=== PATIENT | male | born 1960 | race Caucasian/White ===

== ENCOUNTER 2019-05-02 08:22 | Inpatient (IN) | payer MEDICARE, OTHER ==
[~2019-05-02] VITALS: Ht 188 cm; Wt 103.8 kg
[~2019-05-02 08:22] MED LIST: NAPR-837 PO
[2019-05-02 08:48] LABS: BASO % 1.1 % (0.0-1.0); EOS % 4.7 % (0.0-3.0); HEMATOCRIT 46.4 % (42.0-52.0); LYMPH % 29.1 % (24.0-44.0); MEAN CORPUSCULAR HEMOGLOBIN 30.2 pg (27.0-33.0); MEAN CORPUSCULAR HGB CONC 34.5 g/dl (32.0-36.5); MEAN CORPUSCULAR VOLUME 87.7 fl (80.0-96.0); NEUTROPHILS % 55.9 % (36.0-66.0); PLATELET COUNT, AUTOMATED 148 10^3/uL (150-450); RED BLOOD COUNT 5.29 10^6/uL (4.30-6.10); WHITE BLOOD COUNT 5.3 10^3/uL (4.0-10.0)
[2019-05-02 08:49] LABS: BASO # 0.1 10^3/uL (0.0-0.2); EOS # 0.3 10^3/uL (0.0-0.5); LYMPH # 1.6 10^3/uL (1.5-5.0); MONO # 0.5 10^3/uL (0.0-0.8)
--- NOTE | 2019-05-02 09:14 | REP ---
CT brain without contrast: History: Altered mental status. No comparison study. 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 Bone window settings demonstrate an intact bony calvarium. Visualized paranasal sinuses are clear. There is a fairly large old right temporal and parietal lobe infarct with encephalomalacia. There is no evidence of acute infarction. No hemorrhage is seen. Altamirano white differentiation pattern is otherwise intact. Impression: Old infarct right temporoparietal lobe, MCA territory. No acute intracranial abnormality. Electronically Signed by Ubaldo Sales MD 05/02/2019 09:45 A
[2019-05-02 09:20] LABS: ALBUMIN 3.9 GM/DL (3.2-5.2); ALT/SGPT 25 U/L (12-78); BILIRUBIN,DIRECT 0.2 MG/DL (0.0-0.2); BILIRUBIN,TOTAL 0.7 MG/DL (0.2-1.0); BLOOD UREA NITROGEN 13 MG/DL (7-18); CALCIUM LEVEL 8.9 MG/DL (8.8-10.2); CARBON DIOXIDE LEVEL 30 MEQ/L (21-32); CHLORIDE LEVEL 106 MEQ/L (98-107); CK-MB VALUE MASS < 1.0 NG/ML (<3.6); CPK CREATINE PHOSPHOKINASE 100 U/L (39-308); CREATININE FOR GFR 1.62 MG/DL (0.70-1.30); GLOMERULAR FILTRATION RATE 46.5 (>49); GLUCOSE, FASTING 90 MG/DL (70-100); POTASSIUM SERUM 3.8 MEQ/L (3.5-5.1); SODIUM LEVEL 141 MEQ/L (136-145); TROPONIN I < 0.02 NG/ML (< 0.10)
[2019-05-02] MEDS ORDERED: ISOVUE-370 76% 100ML VIAL (Q9967) As Ordered ONE (09:21)
--- NOTE | 2019-05-02 09:55 | REP ---
PORTABLE CHEST X-RAY: Single view. HISTORY: CVA. FINDINGS: EKG monitoring electrodes overlie the chest. Lungs are well inflated and clear. Heart size is normal. Pleural angles are sharp. The aorta slightly tortuous. There are mild degenerative changes in the thoracic spine. IMPRESSION: No active cardiopulmonary disease. Electronically Signed by Ubaldo Sales MD 05/02/2019 01:48 P
[2019-05-02 09:57] LABS: AMPHETAMINES LEVEL URINE NEGATIVE (NEGATIVE); BARBITURATES URINE NEGATIVE (NEGATIVE); BENZODIAZEPINES URINE NEGATIVE (NEGATIVE); CANNABINOIDS URINE NEGATIVE (NEGATIVE); COCAINE METABOLITE URINE NEGATIVE (NEGATIVE); METHADONE URINE NEGATIVE (NEGATIVE); OPIATES URINE NEGATIVE (NEGATIVE); PHENCYCLIDINE URINE NEGATIVE (NEGATIVE)
--- NOTE | 2019-05-02 10:00 | REP ---
CT angiography of the brain with IV contrast: History: CVA. Comparison head CT study May 02, 2019. CT contrast dose: 100 ml of intravenous Isovue [address] angiographic findings: The distal vertebral arteries are patent, left a little larger than right. Basilar artery is widely patent. The left posterior cerebral artery takes persistent origin which is a normal variant. Right posterior cerebral artery is unremarkable. The distal internal carotid arteries are intact. There is no significant vascular calcification. Anterior middle cerebral arteries are unremarkable bilaterally. There is no evidence of stevenson aneurysm or arterial venous malformation. Sagittal and straight sinuses are patent. Sigmoid sinuses are patent bilaterally. Impression: Persistent origin left posterior cerebral artery. Unremarkable CT angiography of the brain. Electronically Signed by Ubaldo Sales MD 05/02/2019 01:48 P
--- NOTE | 2019-05-02 10:06 | REP ---
CT ANGIOGRAPHY OF THE NECK WITH IV CONTRAST: HISTORY: CVA. CT CONTRAST DOSE: 100 mL of intravenous Isovue [address] ANGIOGRAPHIC FINDINGS: The left vertebral artery takes a direct aortic origin which is a normal variant. Great vessel origins are otherwise unremarkable and intact. Vertebral arteries are patent and symmetric in size in their cervical segments. The common carotid arteries are unremarkable bilaterally. There is some atherosclerotic plaquing bilaterally in the carotid bifurcation. There is no significant ICA stenosis on either side. The cervical segments of the internal carotid arteries are normal and symmetric. IMPRESSION: Minimal carotid artery bifurcation plaquing. No evidence of carotid stenosis. Direct aortic origin of the left vertebral artery as a normal variant. Otherwise negative. Electronically Signed by Ubaldo Sales MD 05/02/2019 01:48 P
[2019-05-02] MEDS ORDERED: hydrALAZINE INJ 20 MG/ML VIAL IV STA (10:15)
[2019-05-02] MEDS ORDERED: CLOPIDOGREL 75 MG TAB PO ONE (11:30)
[2019-05-02] MEDS ORDERED: ASPIRIN 325 MG TAB PO ONE (11:30)
--- NOTE | 2019-05-02 12:58 | HPEPDOC ---
[facility] Medical History & Physical Date of Admission May 02, 2019 Date of Service: May 02, 2019 Attending Physician: ANGELES RINCON MD History and Physical CHIEF COMPLAINT: Right-sided numbness and tingling HISTORY OF PRESENT ILLNESS: 58-year-old male with past medical history of CVA 7 years ago in the right MCA territory, hypertension, hyperlipidemia, now presents with right sided numbness and tingling from his face down to his feet, which she first noticed upon waking up at 6 AM today. He reports taking aspirin, Plavix, blood pressure and cholesterol medications, which were all stopped one year ago because "he lost 70 pounds" in his physician discontinued them at the [place]. He reports feeling well up until this morning when his symptoms began, denies any history of kidney disease. Upon reviewing his chart in the ED, patient has very high blood pressure, elevated creatinine; CT head and CTA negative for acute pathology, MRI pending. Patient denies any headache, nausea, vomiting, shortness of breath, chest pain, abdominal pain, diarrhea at this time; only reports polyuria, which started earlier today. 10 point review of systems is negative except for above PAST MEDICAL HISTORY: 1. Hypertension. 2. CVA. 3. Lipidemia. PAST SURGICAL HISTORY: 1. Hernia repair. 2. Left Knee arthroscopy. 3. Right foot surgery. SOCIAL HISTORY: Never smoker, rare alcohol use FAMILY HISTORY: Father with cardiac disease ALLERGIES: Please see below. HOME MEDICATIONS: Please see below. PHYSICAL EXAMINATION: VITAL SIGNS: Please see below. GENERAL: No distress HEENT: Normocephalic, atraumatic, moist mucous membranes NECK: Supple CARDIOVASCULAR EXAMINATION: S1, S2, no murmurs RESPIRATORY EXAMINATION: Clear to auscultation, no wheezing ABDOMINAL EXAMINATION: Soft, nontender, nondistended, positive bowel sounds EXTREMITIES: Range of motion intact SKIN: No rash NEUROLOGICAL EXAMINATION: Alert and oriented 3, no muscle weakness bilaterally, right sided sensory deficits, including decreased sensation noted throughout the entire body from face to foot. No other sensory deficits appreciated PSYCHIATRIC EXAMINATION: Calm and cooperative LABORATORY DATA: See below. IMAGING: CT and CTA head negative for acute pathology MICROBIOLOGY: Please see below. ASSESSMENT: 4-year-old male with past medical history of CVA, hypertension, hyperlipidemia who stopped taking his medications one year ago presents with symptoms concerning for acute stroke. . PLAN: 1. Right-sided numbness and tingling. Concerning for CVA, CT head negative, MRI pending. Neurology consulted in the ED, he developed pending. Aspirin, Plavix and statin. PT and OT eval We will allow permissive hypertension for now. 2. Hypertensive emergency. Status post hydralazine in the ED We will allow permissive hypertension given concern for acute stroke. We will add medications as needed. 3. Elevated creatinine. Acute renal failure versus chronic kidney disease We will trend and monitor during hospitalization. Joyce E prophylaxis: Heparin subcutaneous. GI prophylaxis: Not needed Vital Signs Vital Signs Date Time Temp Pulse Resp B/P (MAP) Pulse Ox O2 Delivery O2 Flow Rate FiO2 05/02/19 10:30 167/104 05/02/19 10:22 54 05/02/19 10:07 20 98 Room Air 05/02/19 08:23 96.2 Laboratory Data Labs 24H Laboratory Tests 2 05/02/19 08:38: Immature Granulocyte % (Auto) 0.2, White Blood Count 5.3, Red Blood Count 5.29, Hemoglobin 16.0, Hematocrit 46.4, Mean Corpuscular Volume 87.7, Mean Corpuscular Hemoglobin 30.2, Mean Corpuscular Hemoglobin Concent 34.5, Red Cell Distribution Width 12.6, Platelet Count 148L, Neutrophils (%) (Auto) 55.9, Lymphocytes (%) (Auto) 29.1, Monocytes (%) (Auto) 9.0H, Eosinophils (%) (Auto) 4.7H, Basophils (%) (Auto) 1.1H, Neutrophils # (Auto) 3.0, Lymphocytes # (Auto) 1.6, Monocytes # (Auto) 0.5, Eosinophils # (Auto) 0.3, Basophils # (Auto) 0.1, Nucleated Red Blood Cells % (auto) 0.0, Anion Gap 5L, Glomerular Filtration Rate 46.5L, Ca lcium Level 8.9, Aspartate Amino Transf (AST/SGOT) 18, Alanine Aminotransferase (ALT/SGPT) 25, Alkaline Phosphatase 108, Total Bilirubin 0.7, Direct Bilirubin 0.2, Total Creatine Kinase 100, Creatine Kinase MB < 1.0, Creatine Kinase MB Relative Index 1.00, Troponin I < 0.02, Total Protein 7.0, Albumin 3.9, Albumin/Globulin Ratio 1.26, Thyroid Stimulating Hormone (TSH) 2.040 10/14/19 09:12: Urine Opiates Screen NEGATIVE, Urine Methadone Screen NEGATIVE, Urine Barbiturates Screen NEGATIVE, Urine Phencyclidine Screen NEGATIVE, Urine Amphetamines Screen NEGATIVE, Urine Benzodiazepines Screen NEGATIVE, Urine Cocaine Metabolite Screen NEGATIVE, Urine Cannabinoids Screen NEGATIVE CBC/BMP Laboratory Tests 05/02/19 08:38 Red Blood Count 5.29, Mean Corpuscular Volume 87.7, Mean Corpuscular Hemoglobin 30.2, Mean Corpuscular Hemoglobin Concent 34.5, Red Cell Distribution Width 12.6, Neutrophils (%) (Auto) 55.9, Lymphocytes (%) (Auto) 29.1, Monocytes (%) (Auto) 9.0 H, Eosinophils (%) (Auto) 4.7 H, Basophils (%) (Auto) 1.1 H, Neutrophils # (Auto) 3.0, Lymphocytes # (Auto) 1.6, Monocytes # (Auto) 0.5, Eosinophils # (Auto) 0.3, Basophils # (Auto) 0.1 Home Medications No Active Prescriptions or Reported Meds Allergies Coded Allergies: No Known Allergies (Verified Allergy, Unknown, 05/02/19) A-FIB/CHADSVASC A-FIB History Current/History of A-Fib/PAF?: No ANGELES RINCON MD May 02, 2019 12:58
--- NOTE | 2019-05-02 13:23 | REP ---
INDICATION: Facial numbness. Ataxia. Stroke. PROCEDURE: 3D [id number] imaging of the intracranial circulation was performed. DATE AND TIME OF STUDY: 05/02/2019, 12:00 COMPARISON STUDIES: Intracranial CT angiogram completed earlier the same day. FINDINGS: Intracranial vessels are patent without significant stenosis or areas of occlusion. There is no evidence of aneurysm or AVM. 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 The left vertebral artery is dominant. CONCLUSION: No significant intracranial vascular stenosis or occlusion. Electronically Signed by Jono Fulton DO 05/02/2019 01:14 P
[2019-05-02] MEDS: ATORVASTATIN 20 MG TAB PO SCH (13:53)
[2019-05-02 15:00] VITALS: BP 182/90
--- NOTE | 2019-05-02 15:23 | REP ---
INDICATION: Ataxia. Stroke. PROCEDURE: Noncontrast MRI of the brain utilizing multiplanar T1- and T2 sequences. STUDY DATE AND TIME : 05/02/2019 at 11:55 COMPARISON STUDIES: CT brain, consider earlier same day. FINDINGS: There are no areas of restricted diffusion to suggest an acute infarction. There is no intracranial mass effect or hydrocephalous. Encephalomalacia is noted within the right temporoparietal region consistent with the remote right MCA infarction. In addition, there is an area of encephalomalacia and gliosis of the anterior inferior right frontal lobe which may be post traumatic, however, chronic ischemia is not excluded. The large intracranial flow voids are present. The basal cisterns are patent. There is no evidence of significant intracranial hemorrhage. There are scattered foci of T2 prolongation throughout the subcortical and periventricular white matter. Volume loss is present. CONCLUSION: There is no evidence of an acute intracranial process. Remote right MCA infarction. Anterior right frontal region, encephalomalacia as described. Volume loss and sequelae of chronic microangiopathic ischemic disease. Electronically Signed by Jono Fulton DO 05/02/2019 01:13 P
[2019-05-02] MEDS ORDERED: SLF 3 ML SYR IV PRN (15:30)
[2019-05-02 16:00] VITALS: BP 180/92
[2019-05-02] MEDS: HEPARIN SOD (PORCINE) 5000 UNITS/ML VIAL SC SCH ×2 (16:07→22:51)
[2019-05-02] MEDS: amLODIPine 5 MG TAB PO SCH (17:25)
[2019-05-02 20:00] VITALS: BP 160/90
[2019-05-02] MEDS: SLF 3 ML SYR IV SCH (22:51)
[2019-05-02 23:59] VITALS: BP 146/95
[2019-05-03 04:00] VITALS: BP 148/92
[2019-05-03] MEDS: SLF 3 ML SYR IV SCH ×3 (05:08→21:30)
[2019-05-03] MEDS: HEPARIN SOD (PORCINE) 5000 UNITS/ML VIAL SC SCH ×3 (05:08→22:04)
[2019-05-03 05:45] LABS: HEMOGLOBIN 15.4 g/dl (13.5-17.5); MEAN CORPUSCULAR HEMOGLOBIN 30.9 pg (27.0-33.0); MEAN CORPUSCULAR VOLUME 88.4 fl (80.0-96.0); PLATELET COUNT, AUTOMATED 130 10^3/uL (150-450); RED BLOOD COUNT 4.98 10^6/uL (4.30-6.10); WHITE BLOOD COUNT 5.3 10^3/uL (4.0-10.0)
[2019-05-03 06:16] LABS: ALBUMIN 3.5 GM/DL (3.2-5.2); BILIRUBIN,TOTAL 0.7 MG/DL (0.2-1.0); CALCIUM LEVEL 8.7 MG/DL (8.8-10.2); CREATININE FOR GFR 1.57 MG/DL (0.70-1.30); GLOMERULAR FILTRATION RATE 48.2 (>49); MAGNESIUM LEVEL 1.9 MG/DL (1.8-2.4); POTASSIUM SERUM 3.8 MEQ/L (3.5-5.1)
--- NOTE | 2019-05-03 07:24 | CR ---
DATE OF CONSULTATION: 05/02/2019 REFERRING PHYSICIAN: Dr. Marni Tello REASON FOR CONSULTATION: Right-sided numbness and tingling. HISTORY OF PRESENT ILLNESS: Gus Ashford is a 58-year-old man with history of stroke in 2011 for which he was admitted at [facility] in [place]. The patient states that he was living in [place], [place] and presented to hospital with speech deficit, left-sided numbness and weakness, and was transferred to [facility]. He states that he recovered 95% from that stroke. He had slight alteration in his speech from that stroke which remained. The patient states that he woke up this morning and felt numbness, tingling of right face and arm, more than his right leg. He describes his numbness as if someone has drawn a line in the middle of his face and body and right side of his body feels numb and tingly without weakness. His right arm is worse than his right leg. He denies any new speech deficit. He denies any seizures, headaches, neck or back pain. The patient had stopped taking his aspirin, Plavix, cholesterol medicines and blood pressure medicines a year ago as he lost 70 pounds and his physician at the [facility] discontinued his medications. When the patient came to [facility] emergency department his blood pressure was 195/100 and he had a high creatinine of 1.62. He denied dysphagia, dysarthria, diplopia, falls or loss of consciousness. PAST MEDICAL HISTORY: Stroke in 2011 for which he was treated at [facility] in [place]. Hypertension. Dyslipidemia. Hernia repair. Left knee arthroscopic surgery. Right foot surgery. SOCIAL HISTORY: He denies smoking or illicit drugs. He rarely drinks alcohol. FAMILY HISTORY: Father with heart disease. HOME MEDICATIONS: He discontinued all of his medicines a year ago due to weight loss. ALLERGIES: None. REVIEW OF SYSTEMS: All systems were reviewed and found to be noncontributory except as mentioned in the history of present illness. PHYSICAL EXAMINATION: Blood pressure in the emergency department was 195/100 and currently 182/90, temperature 97.1, pulse 58, respiratory rate 22, 100% saturation on room air. Heart regular rate and rhythm. Lungs clear to auscultation. Abdomen soft, nontender, nondistended. No pedal edema. No musculoskeletal abnormalities. No rash. No signs of meningeal irritation. The patient is awake, alert, oriented to place, person and time. Normal speech comprehension and repetition. Extraocular muscles are intact. No facial weakness. Tongue and uvula are midline. Visual celestin are full to confrontation. There is no nystagmus. Recent and distant memory is intact. 5/5 strength in all four extremities. Deep tendon flexes are 3+ on the left side and 2+ on the right side. Plantars are downgoing. The patient states that he is able to feel cold, pinprick vibration sensation on right side of his body, but it feels different than the left side. He states that his numbness is on right side of his body as if somebody has drawn a line in the midline. Gait is normal. DIAGNOSTIC STUDIES: MRI scan of brain showed old stable right middle cerebral artery stroke affecting right frontal and parietal lobes. CT angiography of head and neck and MRA brain were all unremarkable. Telemetry so far showed normal sinus rhythm. He has sinus bradycardia. ASSESSMENT: 1. Old right middle cerebral artery stroke affecting right frontal and parietal lobes causing left-sided symptoms in past. 2. Hypertensive urgency currently. 3. There is concern for transient ischemic attack (TIA). PLAN: 1. Keep systolic blood pressure below 180 and diastolic blood pressure below 90. 2. Start amlodipine 5 mg p.o. daily. The patient used to be on Exforge in the past, but states that it made him depressed. 3. Aspirin 81 mg p.o. daily and Plavix 75 mg p.o. daily. 4. Lipitor 40 mg p.o. daily. 5. Echocardiogram and continue telemetry monitoring. We should check his fasting lipid profile in the morning. 6. Follow with our office in 2-4 weeks after hospital discharge.
--- NOTE | 2019-05-03 07:31 | ECGEPIP ---
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
[2019-05-03 08:00] VITALS: BP 160/82
[2019-05-03] MEDS ORDERED: ASPIRIN 325 MG TAB PO SCH (09:00)
[2019-05-03] MEDS: ASPIRIN 81 MG CHEW TABLET PO SCH (09:22)
[2019-05-03] MEDS: CLOPIDOGREL 75 MG TAB PO SCH (09:22)
[2019-05-03] MEDS: amLODIPine 5 MG TAB PO SCH (09:22)
[2019-05-03] MEDS: ATORVASTATIN 20 MG TAB PO SCH (09:22)
[2019-05-03] MEDS ORDERED: SODIUM CHLORIDE NASAL 0.65% SPRAY BTL (OCEAN) PRN (10:15)
[2019-05-03 12:00] VITALS: BP 152/87
[2019-05-03 16:00] VITALS: BP 142/67
--- NOTE | 2019-05-03 16:12 | IPNPDOC ---
Date Seen The patient was seen on 05/03/19. Progress Note HISTORY OF PRESENT ILLNESS: 58-year-old male with past medical history of CVA 7 years ago in the right MCA territory, hypertension, hyperlipidemia, now presents with right sided numbness and tingling from his face down to his feet, which she first noticed upon waking up at 6 AM today. He reports taking aspirin, Plavix, blood pressure and cholesterol medications, which were all stopped one year ago because "he lost 70 pounds" in [facility]. He reports feeling well up until this morning when his symptoms began, denies any history of kidney disease. Upon reviewing his chart in the ED, patient has very high blood pressure, elevated creatinine; CT head and CTA negative for acute pathology, MRI pending. Patient denies any headache, nausea, vomiting, shortness of breath, chest pain, abdominal pain, diarrhea at this time; only reports polyuria, which started earlier today. 05/03/2019 No acute events overnight, MRI negative for acute stroke, patient reports near complete resolution of symptoms, only reports numbness and tingling over his face at this time. He has no weakness at this time. He denies any other symptoms; he denies shortness of breath, chest pain, nausea, vomiting, diarrhea, constipation, abdominal pain at this time. 10 point review of systems is negative except for above ALLERGIES: Please see below. HOME MEDICATIONS: Please see below. PHYSICAL EXAMINATION: VITAL SIGNS: Please see below. GENERAL: No distress HEENT: Normocephalic, atraumatic, moist mucous membranes NECK: Supple CARDIOVASCULAR EXAMINATION: S1, S2, no murmurs RESPIRATORY EXAMINATION: Clear to auscultation, no wheezing ABDOMINAL EXAMINATION: Soft, nontender, nondistended, positive bowel sounds EXTREMITIES: Range of motion intact SKIN: No rash NEUROLOGICAL EXAMINATION: Alert and oriented 3, no muscle weakness bilaterally, right sided sensory deficits on face only PSYCHIATRIC EXAMINATION: Calm and cooperative LABORATORY DATA: See below. IMAGING: MRI negative for stroke MICROBIOLOGY: Please see below. ASSESSMENT: 58-year-old male with past medical history of CVA, hypertension, hyperlipidemia who stopped taking his medications one year ago, admitted for TIA. PLAN: 1. TIA CT, CTA, MRI negative for acute stroke Neurology evaluation appreciated Aspirin, Plavix and statin. PT and OT following. TTE pending read 2. Hypertension Continue Norvasc, will titrate accordingly 3. Elevated creatinine. Likely chronic kidney disease, will monitor. DVT prophylaxis: Heparin subcutaneous. GI prophylaxis: Not needed VS, I&O, 24H, Fishbone Vital Signs/I&O Vital Signs Date Time Temp Pulse Resp B/P (MAP) Pulse Ox O2 Delivery O2 Flow Rate FiO2 05/03/19 12:00 98.2 65 20 152/87 (108) 98 05/02/19 14:16 Room Air I&O- Last 24 Hours up to 6 AM 05/03/19 06:00 Intake Total 560 ml Output Total 2050 ml Balance -1490 ml Laboratory Data 24H LABS Laboratory Tests 2 05/03/19 05:06: Nucleated Red Blood Cells % (auto) 0.0, Anion Gap 9, Glomerular Filtration Rate 48.2L, Blood Urea Nitrogen 16, Creatinine 1.57H, Sodium Level 142, Potassium Level 3.8, Chloride Level 107, Carbon Dioxide Level 26, Calcium Level 8.7L, Aspartate Amino Transf (AST/SGOT) 15, Alanine Aminotransferase (ALT/SGPT) 23, Alkaline Phosphatase 95, Total Bilirubin 0.7, Triglycerides Level 126, LDL Cholesterol 119H, Total Protein 6.0L, Albumin 3.5, Magnesium Level 1.9, Albumin/Globulin Ratio 1.40, Total Cholesterol 180, Non-HDL Cholesterol (LDL + VLDL) 144, Total HDL Cholesterol 36L, Cholesterol/HDL Ratio 5.000 CBC/BMP Laboratory Tests 05/03/19 05:06 Red Blood Count 4.98, Mean Corpuscular Volume 88.4, Mean Corpuscular Hemoglobin 30.9, Mean Corpuscular Hemoglobin Concent 35.0, Red Cell Distribution Width 12.6, Calcium Level 8.7 L, Aspartate Amino Transf (AST/SGOT) 15, Alanine Amino transferase (ALT/SGPT) 23, Alkaline Phosphatase 95, Total Bilirubin 0.7, Triglycerides Level 126, LDL Cholesterol 119 H, Total Protein 6.0 L, Albumin 3.5 ANGELES RINCON MD May 03, 2019 16:12
[2019-05-03 20:00] VITALS: BP 168/76
--- NOTE | 2019-05-03 23:41 | ECHO ---
DATE OF PROCEDURE: 05/03/2019 REFERRING PHYSICIAN: Dr. Marni Tello INDICATION: Transient cerebral ischemia, unspecified. HEIGHT: 74 inches WEIGHT: 103 kilograms 2D MEASUREMENTS: Left atrium: 3.8 cm Ventricular septum: 1.23 cm Posterior wall: 1.25 cm Left ventricle diastole: 2.9 cm Aortic root: 3.0 cm Aortic annulus: 2.2 cm DOPPLER MEASUREMENTS: Aortic valve velocity: 134 cm/s LVOT velocity: 116 cm/s LVOT VTI: 24.8 cm No aortic regurgitation. Very mild mitral regurgitation. Mitral E velocity: 59.7 cm/s Mitral A velocity: 75.5 cm/s Mitral deceleration time: 271 milliseconds Very mild tricuspid regurgitation. Estimated right ventricle systolic pressure: 20 mmHg assuming a pressure of 5 mmHg. Pulmonary artery systolic pressure: 12 mmHg MITRAL ANNULAR TISSUE DOPPLER: E prime septal: 5.0 cm/s E prime lateral: 10.9 cm/s DESCRIPTION: Rhythm was sinus. This was a moderately technically difficult echocardiogram. No pericardial effusion. This was a 2D, M-mode, color flow Doppler and pulse wave Doppler examination and included mitral annular tissue Doppler. CONCLUSIONS: 1. Mild concentric left ventricle hypertrophy. Hyperdynamic left ventricular (LV) systolic function. Left ventricular ejection fraction (LVEF) 70-75% by visual estimate. Grade 1 LV diastolic dysfunction. 2. Mild aortic valve sclerosis of 3-cusp aortic valve. No aortic regurgitation. 3. Otherwise normal appearing echocardiogram Doppler findings. 4. Moderately technically difficult echocardiogram.
[2019-05-03 23:59] VITALS: BP 140/70
[2019-05-04 04:00] VITALS: BP 158/82
[2019-05-04 05:51] LABS: HEMATOCRIT 42.3 % (42.0-52.0); HEMOGLOBIN 14.8 g/dl (13.5-17.5); MEAN CORPUSCULAR VOLUME 88.7 fl (80.0-96.0); PLATELET COUNT, AUTOMATED 129 10^3/uL (150-450); RED BLOOD COUNT 4.77 10^6/uL (4.30-6.10); WHITE BLOOD COUNT 5.5 10^3/uL (4.0-10.0)
[2019-05-04 06:10] LABS: ALBUMIN 3.3 GM/DL (3.2-5.2); BILIRUBIN,TOTAL 0.7 MG/DL (0.2-1.0); CALCIUM LEVEL 8.5 MG/DL (8.8-10.2); CREATININE FOR GFR 1.73 MG/DL (0.70-1.30); GLOMERULAR FILTRATION RATE 43.1 (>49); POTASSIUM SERUM 3.9 MEQ/L (3.5-5.1); TOTAL PROTEIN 6.4 GM/DL (6.4-8.2)
[2019-05-04] MEDS: HEPARIN SOD (PORCINE) 5000 UNITS/ML VIAL SC SCH (06:14)
[2019-05-04] MEDS: SLF 3 ML SYR IV SCH (06:15)
[2019-05-04 08:00] VITALS: BP 140/62
[2019-05-04] MEDS: CLOPIDOGREL 75 MG TAB PO SCH (08:58)
[2019-05-04] MEDS: ATORVASTATIN 20 MG TAB PO SCH (08:58)
[2019-05-04] MEDS: ASPIRIN 81 MG CHEW TABLET PO SCH (08:58)
[2019-05-04 08:59] VITALS: BP 140/62
[2019-05-04] MEDS ORDERED: amLODIPine 10 MG TAB PO SCH (09:00)
[2019-05-04] MEDS ORDERED: ATOR1TAB21 PO (12:53)
[2019-05-04] MEDS ORDERED: ASPI81CH8 PO (12:53)
[2019-05-04] MEDS ORDERED: AMLO10TA5 PO (12:53)
[2019-05-04] MEDS ORDERED: CLOP75TA2 PO (12:53)
--- NOTE | 2019-05-04 14:34 | DS.PDOC ---
Discharge Summary General Date of Admission May 02, 2019 at 12:27 Date of Discharge 05/04/2019 Attending Physician: ANGELES RINCON MD Discharge Summary PROCEDURES PERFORMED DURING STAY: None. ADMITTING DIAGNOSES: 1. TIA. DISCHARGE DIAGNOSES: 1. TIA. COMPLICATIONS/CHIEF COMPLAINT: Cva,Elevated Serum Creantinine,Hypertension,. HISTORY OF PRESENT ILLNESS: 4-year-old male with past medical history of CVA, hypertension and CAD was admitted for TIA. Patient's presenting symptoms were numbness and tingling on the right side of his body including his face, right arm and right leg. His workup including CAT scan, MRI and echocardiogram have been negative. His symptoms have resolved completely since admission. He was reportedly taken off of his blood pressure medications along with aspirin, Plavix one year ago [facility]. Patient is restarted on aspirin, Plavix, atorvastatin and Norvasc for blood pressure control. Patient is noted to have elevated creatinine, likely chronic kidney disease due to long-standing hypertension. TTE shows mild concentric hypertrophy and diastolic dysfunction, consistent with long-standing hypertension. Patient is currently completely asymptomatic and wishing to go home. He was evaluated by neurology who recommended medical management as above and follow up in the clinic in 2-3 weeks. HOSPITAL COURSE: As above. DISCHARGE MEDICATIONS: Please see below. ALLERGIES: Please see below. PHYSICAL EXAMINATION: VITAL SIGNS: Please see below. GENERAL: No distress HEENT: Normocephalic, atraumatic, moist mucous membranes NECK: Supple CARDIOVASCULAR EXAMINATION: S1, S2, no murmurs RESPIRATORY EXAMINATION: Clear to auscultation, no wheezing ABDOMINAL EXAMINATION: Soft, nontender, nondistended, positive bowel sounds EXTREMITIES: Range of motion intact SKIN: No rash NEUROLOGICAL EXAMINATION: Alert and oriented 3, no focal deficits PSYCHIATRIC EXAMINATION: Calm and cooperative LABORATORY DATA: Please see below. IMAGING: CT and MRI negative for acute stroke PROGNOSIS: Fair ACTIVITY: As tolerated. DIET: Cardiac DISCHARGE PLAN: Patient is to follow-up with neurology, nephrology, PCP in 1-2 weeks DISPOSITION: 01 Home, Self-Care. DISCHARGE INSTRUCTIONS: 1. As above. DISCHARGE CONDITION: Stable. TIME SPENT ON DISCHARGE: Greater than 34 minutes. Vital Signs/I&Os Vital Signs Date Time Temp Pulse Resp B/P (MAP) Pulse Ox O2 Delivery O2 Flow Rate FiO2 05/04/19 08:59 71 140/62 05/04/19 08:00 97.7 18 95 05/02/19 14:16 Room Air I&O- Last 24 Hours up to 6 AM 05/04/19 06:00 Intake Total 1760 ml Output Total 2150 ml Balance -390 ml Laboratory Data Labs 24H Laboratory Tests 2 05/03/19 16:21: Magnesium Level 2.2 05/04/19 05:27: Nucleated Red Blood Cells % (auto) 0.0, Anion Gap 4L, Glomerular Filtration Rate 43.1L, Calcium Level 8.5L, Total Bilirubin 0.7, Aspartate Amino Transf (AST/SGOT) 16, Alanine Aminotransferase (ALT/SGPT) 19, Alkaline Phosphatase 94, Total Protein 6.4, Albumin 3.3, Albumin/Globulin Ratio 1.06 CBC/BMP Laboratory Tests 05/04/19 05:27 Discharge Medications Scheduled Amlodipine Besylate (Amlodipine Besylate) 10 Mg Tablet, 10 MG PO DAILY Aspirin (Children's Aspirin) 81 Mg Tab.chew, 81 MG PO DAILY Atorvastatin Calcium (Atorvastatin Calcium) 20 Mg Tablet, 40 MG PO DAILY Clopidogrel Bisulfate (Clopidogrel) 75 Mg Tablet, 75 MG PO DAILY Allergies Coded Allergies: No Known Allergies (Verified Allergy, Unknown, 05/02/19) ANGELES RINCON MD May 04, 2019 14:34
== END 2019-05-04 14:17 | disposition home or self-care (01) | DRG 69 ==
LOC: M ED 08:22 → M ED INP 12:27 → M PCU 14:55
PROVIDERS: ADMIT Internal Medicine; ATTEND Internal Medicine
DX: G45.9 Transient cerebral ischemic attack, unspecified (principal); I63.9 Cerebral infarction, unspecified; I16.1 Hypertensive emergency; I12.9 Hypertensive chronic kidney disease with stage 1 through stage 4 chronic kidney disease, or unspecified chronic kidney disease; E78.5 Hyperlipidemia, unspecified; N18.9 Chronic kidney disease, unspecified; Z86.73 Personal history of transient ischemic attack (TIA), and cerebral infarction without residual deficits; Z96.652 Presence of left artificial knee joint

== ENCOUNTER → 2019-05-30 | Outpatient (CLI) | payer MEDICARE, OTHER ==
[~2019-05-30] MED LIST changes: +AMLO10TA5 PO; +ASPI81CH8 PO; +ATOR1TAB21 PO; +CHLO125TA PO; +CLOP75TA2 PO; +CO Q200C10 PO; +K-TA10TA PO
--- NOTE | 2019-05-30 17:01 | REP ---
Bilateral duplex carotid sonography: History: Transient ischemic attack. Findings: Antegrade flow was observed in both vertebral arteries. Right carotid: The right common carotid artery is unremarkable on two-dimensional scanning. There is mild mixed plaquing in the bulb and proximal ECA on the right side on two-dimensional scanning. Color flow and spectral Doppler interrogation are unremarkable on the right. Velocity chart right carotid: Right CCA PSV 89 cm/S, right ICA PSV 44, ZEESHAN 15, right ECA PSV 67 right ICA/CCA ratio normal 0.5. Impression: Less than 50% category narrowing in the left ICA by Doppler velocity criteria. Left carotid: Left common carotid artery shows mild intimal thickening. There is mild mixed plaquing in the bulb and proximal ICA on the left side. Color flow and spectral Doppler interrogation are unremarkable on the left. Velocity chart left carotid: Left CCA PSV 145 cm/S, left ICA PSV 61 EDV 27, left ECA PSV 76 left ICA/CCA ratio normal 0.4. Impression: Less than 50% category narrowing in the left ICA by Doppler velocity criteria. Electronically Signed by Ubaldo Sales MD 05/30/2019 05:14 P
== END ==
LOC: M RAD 11:54
PROVIDERS: ATTEND Internal Medicine Cardiovascular Disease
DX: G45.9 Transient cerebral ischemic attack, unspecified (principal)

== ENCOUNTER 2019-05-31 11:28 | Day surgery (SDC) | payer MEDICARE, OTHER ==
[~2019-05-31] VITALS: Ht 188 cm; Wt 100.7 kg
[~2019-05-31 11:28] MED LIST changes: +LR 1,000 ML IV ONE; +ceFAZolin SOD 2 GM in IV 1 EA IV ONE
[2019-05-31] MEDS ORDERED: LIDOCAINE 1% SDV INJ 30 ML VIAL As Ordered ONE (12:00)
[2019-05-31] MEDS ORDERED: PROPOFOL 200 MG/20 ML VIAL As Ordered ONE (12:10)
[2019-05-31] MEDS ORDERED: MIDAZOLAM INJ 2 MG/2 ML VIAL (J2250) As Ordered ONE (12:10)
[2019-05-31] MEDS ORDERED: fentaNYL 100 MCG/2 ML INJECTION (J3010) As Ordered ONE (12:10)
[2019-05-31] MEDS ORDERED: LIDOCAINE 2% INJ 100 MG/5 ML SDV (FOR ANES.) As Ordered ONE (12:10)
[2019-05-31 14:13] VITALS: BP 128/89
--- NOTE | 2019-05-31 14:32 | RO ---
DATE OF PROCEDURE: 05/31/2019 PREPROCEDURE DIAGNOSIS: Cryptogenic stroke. POSTPROCEDURE DIAGNOSIS: Cryptogenic stroke. FINDINGS: Cryptogenic stroke. Successful implantation of implantable loop recorder. PROCEDURE PERFORMED: Implantation of Medtronic implantable loop recorder. SURGEON: Feng Jose MD AIRLINE SECURITY REPRESENTATIVE: None. ANESTHESIA: Lidocaine 1% local, monitored anesthetic care. SPECIMENS: None. ESTIMATED BLOOD LOSS: 1 mL. BLOOD PRODUCTS REPLACED: None. DRAINS: None. COMPLICATIONS: None. PROCEDURE DESCRIPTION: The patient was then prepped and draped over the sternum and left anterior chest. Incision was made with a #15 blade approximately at the left fourth interspace 1 inch lateral to the left parasternal border through the skin. The guide on the insertion tool was then placed into the incision and advanced in a left lateral-caudal direction parallel to the anterior chest wall. The insertion tool was then rotated 180 degrees along its long axis. The punch was then placed into the insertion tool and used to advance the loop recorder into the subcutaneous tissue. The punch was removed and then the insertion tool was removed, leaving the loop recorder behind. The initial R wave sensing was 0.5 mV. The incision was then temporarily approximated using a 4-0 Biosyn suture, which was placed subcuticular with the free ends protruding 0.5 cm from either end of the incision line. This was then placed under tension to allow the skin edges to approximate quite tightly. Next, three layers of Dermabond were applied. The Biosyn suture was then removed entirely from the incision line. The patient tolerated the procedure well without any immediate complications. The Medtronic loop recorder implanted was a [employer] Reveal LINQ model LNQ11 with serial number [id number].
== END 2019-05-31 14:18 | disposition home or self-care (01) ==
LOC: M SDC 11:28
PROVIDERS: ATTEND Internal Medicine Cardiovascular Disease
DX: I63.9 Cerebral infarction, unspecified (principal); I13.10 Hypertensive heart and chronic kidney disease without heart failure, with stage 1 through stage 4 chronic kidney disease, or unspecified chronic kidney disease; G45.9 Transient cerebral ischemic attack, unspecified; E66.3 Overweight; N18.3 Chronic kidney disease, stage 3 (moderate); I69.321 Dysphasia following cerebral infarction; I69.354 Hemiplegia and hemiparesis following cerebral infarction affecting left non-dominant side; Z79.899 Other long term (current) drug therapy; Z79.82 Long term (current) use of aspirin; Z79.02 Long term (current) use of antithrombotics/antiplatelets; Z82.49 Family history of ischemic heart disease and other diseases of the circulatory system
CPT/HCPCS: 33285; C1764; J0690; J2250; J3010

== ENCOUNTER 2019-06-03 12:02 | Day surgery (SDC) | payer MEDICARE, OTHER ==
[~2019-06-03] VITALS: Ht 188 cm; Wt 102.1 kg
[~2019-06-03 12:02] MED LIST changes: -LR 1,000 ML IV ONE; -ceFAZolin SOD 2 GM in IV 1 EA IV ONE
[2019-06-03] MEDS ORDERED: NS 1,000 ML IV ONE (13:45)
[2019-06-03] MEDS ORDERED: LIDOCAINE VISCOUS 2% SOLN 15ML UDC As Ordered ONE (14:09)
[2019-06-03] MEDS ORDERED: MIDAZOLAM INJ 2 MG/2 ML VIAL (J2250) As Ordered ONE ×4 (14:10→14:13)
[2019-06-03 15:15] VITALS: BP 122/92
--- NOTE | 2019-06-03 15:58 | T-ECHO ---
DATE OF PROCEDURE: 06/03/2019 REFERRING PHYSICIAN: Feng Jose MD INDICATION: 1. Cryptogenic stroke. 2. Transient cerebral ischemia, unspecified. PREPROCEDURE DIAGNOSIS: 1. Cryptogenic stroke. 2. Transient cerebral ischemia, unspecified. POSTPROCEDURE DIAGNOSIS: Patent foramen ovale with positive bubble shunting from right atrium to left atrium via the patent foramen ovale (PFO). PROCEDURE: Transesophageal echocardiogram with bubble study. SURGEON: Feng Jose MD PLUG AND MOLD FINISHER: None. IV SEDATION: Midazolam 5 mg IV. COMPLICATIONS: None. PROCEDURE DESCRIPTION: Rhythm was sinus. Patient received viscous lidocaine to gargle at the start of the procedure. Esophageal intubation was accomplished without difficulty by Dr. Jose using a Davon's 3D transesophageal echocardiogram probe. The left and right ventricles appeared normal in size and systolic function and without regional wall motion abnormalities. Left ventricle ejection fraction was 60% by visual estimate. Atria did not appear to be enlarged. 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 The presence of a small patent foramen ovale was demonstrated with shunting of bubbles from right atrium to left atrium via the PFO using three bubble injections. The bubble injections consisted of 8.5 mL of normal saline with 1 mL of the patient's own blood withdrawn from the IV site combined with 0.5 mL of air which was then agitated then agitated back and forth between two 10 mL syringes via a three-way stopcock. Valsalva maneuver was released upon entry of bubbles into the right atrium. The degree of bubble shunting appeared to be small. Pulmonary venous connections to the left atrium were anatomically normal. Pulmonary vein flow in the left upper pulmonary vein by pulse wave Doppler appeared normal. Aortic valve was three-cuspid and was structurally functional. Mitral leaflets were structurally and functionally normal with very mild mitral regurgitation within normal limits. Pulmonic and tricuspid valves were normal. No pericardial effusion. Distal aortic arch and descending thoracic aorta were normal. CONCLUSIONS: 1. The presence of patent foramen ovale with a small amount of shunting from right atrium to left atrium demonstrated by bubble injections. 2. 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 3. Normal left ventricle systolic function. Left ventricular ejection fraction 60% by visual estimate. Following the procedure I showed some images to the patient and his who were present at the bedside. The patent foramen ovale with the crossing of bubbles from left atrium to left atrium via the PFO. I discussed with both of them in addition to explaining PFO about PFO device closure and they were agreeable. My plan is to refer the patient to a invasive critical care specialist familiar with device closure of PFOs.
== END 2019-06-03 15:34 | disposition home or self-care (01) ==
LOC: M OPP 12:02
PROVIDERS: ATTEND Internal Medicine Cardiovascular Disease
DX: I63.9 Cerebral infarction, unspecified (principal); I11.9 Hypertensive heart disease without heart failure; G45.9 Transient cerebral ischemic attack, unspecified; E66.3 Overweight; N18.3 Chronic kidney disease, stage 3 (moderate)
CPT/HCPCS: 93312; 93320; 93325; J2250

== ENCOUNTER → 2019-06-09 | Outpatient (REF) | payer MEDICARE, OTHER | LOC: M LAB REF 12:52 | PROVIDERS: ATTEND Internal Medicine Nephrology | DX: E78.6 Lipoprotein deficiency (principal) ==

== ENCOUNTER → 2019-06-14 | Outpatient (REF) | payer MEDICARE, OTHER ==
[2019-06-14 12:57] LABS: BASO % 0.6 % (0.0-1.0); EOS # 0.2 10^3/uL (0.0-0.5); EOS % 3.2 % (0.0-3.0); HEMATOCRIT 47.5 % (42.0-52.0); LYMPH # 1.6 10^3/uL (1.5-5.0); LYMPH % 23.3 % (24.0-44.0); MEAN CORPUSCULAR HEMOGLOBIN 30.3 pg (27.0-33.0); MEAN CORPUSCULAR HGB CONC 33.7 g/dl (32.0-36.5); MONO # 0.5 10^3/uL (0.0-0.8); MONO % 7.2 % (0.0-5.0); NEUTROPHILS # 4.5 10^3/uL (1.5-8.5); NEUTROPHILS % 65.4 % (36.0-66.0); PLATELET COUNT, AUTOMATED 177 10^3/uL (150-450); RED BLOOD COUNT 5.28 10^6/uL (4.30-6.10); WHITE BLOOD COUNT 6.9 10^3/uL (4.0-10.0)
[2019-06-14 13:10] LABS: ALBUMIN 3.7 GM/DL (3.2-5.2); BILIRUBIN,TOTAL 0.8 MG/DL (0.2-1.0); CALCIUM LEVEL 8.8 MG/DL (8.8-10.2); CHOLESTEROL RISK RATIO 5.2 (<5); CREATININE FOR GFR 1.75 MG/DL (0.70-1.30); FREE T4 1.09 NG/DL (0.76-1.46); GLOMERULAR FILTRATION RATE 42.5 (>49); POTASSIUM SERUM 4.1 MEQ/L (3.5-5.1); THYROID STIMULATING HORMONE 2.02 uIU/ML (0.358-3.740); TOTAL PROTEIN 6.9 GM/DL (6.4-8.2)
[2019-06-14 13:26] LABS: TOTAL 25(OH) VITAMIN D 24.3 NG/ML (30.0-100.0)
[2019-06-14 13:59] LABS: HEMOGLOBIN A1c 5.1 %
[2019-06-16 00:06] LABS: Lyme Disease IgG/IgM Antibodie <0.91 ISR (0.00-0.90); Lyme Disease IgM Ab Quantitati <0.80 index (0.00-0.79)
== END ==
LOC: M LAB REF 12:04
PROVIDERS: ATTEND Family Medicine
DX: M25.50 Pain in unspecified joint (principal); Z13.228 Encounter for screening for other metabolic disorders; Z12.5 Encounter for screening for malignant neoplasm of prostate; Z79.899 Other long term (current) drug therapy
CPT/HCPCS: 80053; 80061; 81001; 82306; 83036; 84439; 84443; 85025; 86617; G0103

== ENCOUNTER → 2019-06-14 | Outpatient (REF) | payer MEDICARE, OTHER ==
[2019-06-14 13:06] LABS: APPEARANCE, URINE CLEAR (CLEAR); BACTERIA, URINE AUTO NEGATIVE (NEGATIVE); BILIRUBIN, URINE AUTO NEGATIVE (NEGATIVE); BLOOD, URINE BLOOD NEGATIVE (NEGATIVE); CALCIUM OXALATE CRYSTALS SMALL; COLOR, URINE YELLOW (YELLOW); GLUCOSE, URINE (UA) AUTO NEGATIVE (NEGATIVE); KETONE, URINE AUTO NEGATIVE (NEGATIVE); LEUKOCYTE ESTERASE, URINE AUTO NEGATIVE (NEGATIVE); MUCUS, URINE SMALL (NEGATIVE); NITRITE, URINE AUTO NEGATIVE (NEGATIVE); PROTEIN, URINE AUTO NEGATIVE (NEGATIVE); RBC, URINE AUTO 1 /HPF (0-3); SPECIFIC GRAVITY URINE AUTO 1.019 (1.002-1.035); SQUAMOUS EPITHELIAL CELL UR AU 0 /HPF (0-6); WBC, URINE AUTO 0 /HPF (0-3)
== END ==
LOC: M LAB REF 11:51
PROVIDERS: ATTEND Family Medicine
DX: M25.50 Pain in unspecified joint (principal); Z12.5 Encounter for screening for malignant neoplasm of prostate; Z13.228 Encounter for screening for other metabolic disorders

== ENCOUNTER → 2019-06-24 | Outpatient (CLI) | payer MEDICARE, OTHER ==
--- NOTE | 2019-06-24 09:01 | REP ---
Clinical: Hypertension and chronic medical renal disease. Technique: Altamirano scale and color Doppler evaluation of the kidneys and renal vasculature using curved array transducer. Findings: The kidneys demonstrate lobulated contour with increased central sinus fat and bilateral cysts consistent with chronic medical renal disease. No hydronephrosis, nephrolithiasis or obvious mass lesion. Right kidney measures 10.9 x 5.5 x 4.8 cm with the largest cysts measuring 2.3 cm in the medial upper pole and 1.6 cm in the cortical mid/lower pole. Left kidney measures 11.4 x 5.8 x 5.0 cm with the largest cyst at the superior pole measuring 3.0 cm. Color Doppler evaluation of the renal vasculature is severely limited due to overlying bowel gas and the main renal arteries are incompletely evaluated. Intrarenal resistive indices and acceleration times appear normal. Aortic velocity is decreased which may reflect underlying cardiac disease. Right Kidney: Peak arterial velocity: Not obtainable . Renal aortic ratio: Not obtainable . Resistive indices: 0.56 - 0.57 . Acceleration times: 0.025 - 0.028 . Left kidney: Peak arterial velocity: Not obtainable . Renal aortic ratio: Not obtainable . Resistive indices: 0.59 - 0.64 . Acceleration times: 0.022 - 0.055 . Impression: 1. Kidneys demonstrate increased central sinus fat and cysts related to chronic renal disease. No hydronephrosis. 2. Limited Doppler evaluation without indirect evidence for significant renal arterial stenosis. Electronically Signed by Kt Rodriguez MD 06/24/2019 08:53 A
--- NOTE | 2019-06-24 09:03 | REP ---
Clinical: Chronic renal disease. Technique: Real time camacho scale and color evaluation using curved array transducer. Findings: The bladder was poorly distended with decreased total volume. No obvious mass lesion noted. Bilateral ureteral jets are identified. Prevoid bladder measures 3.8 x 4.3 x 3.4 cm (36 ml). Impression: Normal bilateral ureteral jets. No obvious renal mass lesion. Electronically Signed by Kt Rodriguez MD 06/24/2019 08:54 A
== END ==
LOC: M RAD 06:24
PROVIDERS: ATTEND Internal Medicine Nephrology
DX: N18.3 Chronic kidney disease, stage 3 (moderate) (principal); I13.0 Hypertensive heart and chronic kidney disease with heart failure and stage 1 through stage 4 chronic kidney disease, or unspecified chronic kidney disease; N28.1 Cyst of kidney, acquired

== ENCOUNTER → 2019-10-03 | Outpatient (REF) | payer MEDICARE, OTHER ==
[2019-10-03 13:06] LABS: BASO % 0.9 % (0.0-1.0); EOS # 0.2 10^3/uL (0.0-0.5); EOS % 4.3 % (0.0-3.0); HEMATOCRIT 43.6 % (42.0-52.0); LYMPH # 1.5 10^3/uL (1.5-5.0); MEAN CORPUSCULAR HEMOGLOBIN 30.7 pg (27.0-33.0); MEAN CORPUSCULAR HGB CONC 34.4 g/dl (32.0-36.5); MEAN CORPUSCULAR VOLUME 89.2 fl (80.0-96.0); MONO # 0.5 10^3/uL (0.0-0.8); MONO % 9.8 % (0.0-5.0); NEUTROPHILS # 2.4 10^3/uL (1.5-8.5); NEUTROPHILS % 52.6 % (36.0-66.0); PLATELET COUNT, AUTOMATED 141 10^3/uL (150-450); RED BLOOD COUNT 4.89 10^6/uL (4.30-6.10); WHITE BLOOD COUNT 4.6 10^3/uL (4.0-10.0)
[2019-10-03 13:16] LABS: ALBUMIN 3.7 GM/DL (3.2-5.2); BILIRUBIN,TOTAL 0.5 MG/DL (0.2-1.0); CALCIUM LEVEL 8.8 MG/DL (8.8-10.2); CHOLESTEROL RISK RATIO 5.341 (<5); CREATININE FOR GFR 1.51 MG/DL (0.70-1.30); GLOMERULAR FILTRATION RATE 50.4 (>49); POTASSIUM SERUM 4.5 MEQ/L (3.5-5.1); THYROID STIMULATING HORMONE 1.03 uIU/ML (0.358-3.740); TOTAL PROTEIN 6.6 GM/DL (6.4-8.2)
[2019-10-03 13:17] LABS: TOTAL 25(OH) VITAMIN D 19.9 NG/ML (30.0-100.0)
[2019-10-03 14:39] LABS: HEMOGLOBIN A1c 5.2 %
== END ==
LOC: M LAB REF 12:44
PROVIDERS: ATTEND Family Medicine
DX: Z13.228 Encounter for screening for other metabolic disorders (principal); E78.00 Pure hypercholesterolemia, unspecified; E07.9 Disorder of thyroid, unspecified

== ENCOUNTER → 2019-10-25 | Outpatient (CLI) | payer MEDICARE, OTHER ==
[2019-10-25 20:04] LABS: BASO # 0.1 10^3/uL (0.0-0.2); BASO % 0.8 % (0.0-1.0); EOS # 0.3 10^3/uL (0.0-0.5); EOS % 4.4 % (0.0-3.0); HEMATOCRIT 46.1 % (42.0-52.0); HEMOGLOBIN 15.9 g/dl (13.5-17.5); LYMPH % 34.2 % (24.0-44.0); MEAN CORPUSCULAR HGB CONC 34.5 g/dl (32.0-36.5); MEAN CORPUSCULAR VOLUME 89.9 fl (80.0-96.0); MONO # 0.6 10^3/uL (0.0-0.8); MONO % 9.3 % (0.0-5.0); PLATELET COUNT, AUTOMATED 158 10^3/uL (150-450); RED BLOOD COUNT 5.13 10^6/uL (4.30-6.10); WHITE BLOOD COUNT 5.9 10^3/uL (4.0-10.0)
[2019-10-25 20:06] LABS: CALCIUM LEVEL 8.7 MG/DL (8.8-10.2); CREATININE FOR GFR 1.51 MG/DL (0.70-1.30); GLOMERULAR FILTRATION RATE 50.4 (>49); POTASSIUM SERUM 4.2 MEQ/L (3.5-5.1)
== END ==
LOC: M LRY 14:55
PROVIDERS: ATTEND Internal Medicine Cardiovascular Disease
DX: I63.10 Cerebral infarction due to embolism of unspecified precerebral artery (principal); Q21.1 Atrial septal defect

== ENCOUNTER 2019-11-05 04:29 | Emergency (ER) | payer MEDICARE, OTHER ==
[~2019-11-05] VITALS: Ht 188 cm; Wt 104.5 kg
[2019-11-05] MEDS ORDERED: AMIL5TAB4 (04:39)
[2019-11-05] MEDS ORDERED: CLOP75TA2 (04:39)
[2019-11-05] MEDS ORDERED: LIDOCAINE W/EPINEPHRINE 1% 20ML VIAL As Ordered ONE (05:00)
[2019-11-05] MEDS ORDERED: LIDOCAINE W/EPINEPHRINE 1% 20ML VIAL SC ONE (05:00)
[2019-11-05 05:34] VITALS: BP 141/95
== END 2019-11-05 05:35 | disposition home or self-care (01) ==
LOC: M ED 04:29
DX: I97.610 Postprocedural hemorrhage of a circulatory system organ or structure following a cardiac catheterization (principal); I11.9 Hypertensive heart disease without heart failure; I25.10 Atherosclerotic heart disease of native coronary artery without angina pectoris; Z98.61 Coronary angioplasty status; Z79.899 Other long term (current) drug therapy; Z79.82 Long term (current) use of aspirin; Z79.02 Long term (current) use of antithrombotics/antiplatelets

== ENCOUNTER → 2021-05-17 | Outpatient (REF) | payer MEDICARE, OTHER ==
[~2021-05-17] MED LIST changes: +AMIL5TAB4; -AMLO10TA5 PO; +AMLO1TAB25 PO; +CLOP75TA2
== END ==
LOC: M LAB REF 13:32
PROVIDERS: ATTEND Internal Medicine Nephrology
DX: E87.6 Hypokalemia (principal)

== ENCOUNTER → 2021-09-13 | Outpatient (REF) | payer MEDICARE, OTHER ==
[2021-09-13 14:40] LABS: ALBUMIN 3.6 GM/DL (3.2-5.2); BILIRUBIN,TOTAL 0.4 MG/DL (0.2-1.0); CALCIUM LEVEL 8.7 MG/DL (8.8-10.2); CREATININE FOR GFR 1.74 MG/DL (0.70-1.30); FREE T4 1.12 NG/DL (0.76-1.46); GLOMERULAR FILTRATION RATE 42.5 (>49); MAGNESIUM LEVEL 2.4 MG/DL (1.8-2.4); POTASSIUM SERUM 4.5 MEQ/L (3.5-5.1); THYROID STIMULATING HORMONE 2.64 uIU/ML (0.358-3.740); TOTAL PROTEIN 6.8 GM/DL (6.4-8.2)
== END ==
LOC: M LAB REF 12:44
PROVIDERS: ATTEND Physician Assistant
DX: I48.0 Paroxysmal atrial fibrillation (principal)

== ENCOUNTER → 2021-10-16 | Outpatient (CLI) | payer MEDICARE, OTHER ==
[~2021-10-16] MED LIST changes: -AMIL5TAB4; +AMIL5TAB4 PO
== END ==
LOC: M LABSMTC 09:20
PROVIDERS: ATTEND Anesthesiology
DX: Z01.818 Encounter for other preprocedural examination (principal); Z11.52 Encounter for screening for COVID-19

== ENCOUNTER 2021-10-17 14:50 | Day surgery (SDC) | payer MEDICARE, OTHER ==
[~2021-10-17] VITALS: Ht 188 cm; Wt 107.0 kg
[~2021-10-17 14:50] MED LIST changes: +LIDOCAINE 1% MDV 20ML VIAL SQ PRN; +LR 1,000 ML IV ONE; +ceFAZolin SOD 2 GM in IV 1 EA IV ONE
[2021-10-17] MEDS ORDERED: dexameTHASONE 4 MG/ML 1ML VIAL (J1100 PER 1MG) As Ordered ONE (16:33)
[2021-10-17] MEDS ORDERED: KETOROLAC 60MG 2ML VIAL As Ordered ONE (16:33)
[2021-10-17] MEDS ORDERED: fentaNYL 100 MCG/2 ML INJECTION As Ordered ONE (16:33)
[2021-10-17] MEDS ORDERED: LIDOCAINE 2% 100MG/5ML SDV (FOR ANES.) As Ordered ONE (16:33)
[2021-10-17] MEDS ORDERED: propofoL 200 MG/20 ML VIAL As Ordered ONE (16:33)
[2021-10-17] MEDS ORDERED: ONDANSETRON 4MG/2ML VIAL As Ordered ONE (16:33)
[2021-10-17] MEDS ORDERED: MIDAZOLAM INJ 2MG/2ML VIAL (J2250 PER 1MG) As Ordered ONE (16:34)
[2021-10-17] MEDS ORDERED: LIDOCAINE 1% MDV 20ML VIAL As Ordered ONE (16:55)
[2021-10-17 18:18] VITALS: BP 135/84
== END 2021-10-17 18:35 | disposition home or self-care (01) ==
LOC: M SDC 14:50
PROVIDERS: ATTEND Internal Medicine Cardiovascular Disease
DX: Z45.09 Encounter for adjustment and management of other cardiac device (principal); Z86.73 Personal history of transient ischemic attack (TIA), and cerebral infarction without residual deficits; I10 Essential (primary) hypertension; Z79.82 Long term (current) use of aspirin; Z79.899 Other long term (current) drug therapy; N18.30 Chronic kidney disease, stage 3 unspecified; Z88.8 Allergy status to other drugs, medicaments and biological substances; F41.9 Anxiety disorder, unspecified
CPT/HCPCS: 33286; J0690; J1100; J1885; J2250; J2405; J3010

== ENCOUNTER → 2022-03-31 | Outpatient (CLI) | payer MEDICARE, OTHER ==
[~2022-03-31] MED LIST changes: +CALC500T52 PO; +CO Q10CA PO; -LIDOCAINE 1% MDV 20ML VIAL SQ PRN; -LR 1,000 ML IV ONE; +REDPOW XX; +VITA100093 PO; -ceFAZolin SOD 2 GM in IV 1 EA IV ONE
== END ==
LOC: M LABSMTC 10:28
PROVIDERS: ATTEND Anesthesiology
DX: Z01.818 Encounter for other preprocedural examination (principal); Z11.52 Encounter for screening for COVID-19

== ENCOUNTER 2022-04-04 06:55 | Day surgery (SDC) | payer MEDICARE, OTHER ==
[~2022-04-04] VITALS: Ht 188 cm; Wt 109.8 kg
[~2022-04-04 06:55] MED LIST changes: +NS 1,000 ML IV ONE
[2022-04-04] MEDS ORDERED: propofoL 500 MG/50 ML VIAL As Ordered ONE (08:31)
[2022-04-04 09:03] VITALS: BP 144/95
== END 2022-04-04 09:40 | disposition home or self-care (01) ==
LOC: M OPP 06:55
PROVIDERS: ATTEND Internal Medicine Gastroenterology
DX: Z12.11 Encounter for screening for malignant neoplasm of colon (principal); D12.0 Benign neoplasm of cecum; D12.2 Benign neoplasm of ascending colon; K64.4 Residual hemorrhoidal skin tags; K64.8 Other hemorrhoids; Z79.82 Long term (current) use of aspirin; Z79.899 Other long term (current) drug therapy; Z88.8 Allergy status to other drugs, medicaments and biological substances; I12.9 Hypertensive chronic kidney disease with stage 1 through stage 4 chronic kidney disease, or unspecified chronic kidney disease; N18.30 Chronic kidney disease, stage 3 unspecified; Z87.74 Personal history of (corrected) congenital malformations of heart and circulatory system; Z86.73 Personal history of transient ischemic attack (TIA), and cerebral infarction without residual deficits

== ENCOUNTER → 2023-01-21 | Outpatient (CLI) | payer MEDICARE, OTHER ==
[~2023-01-21] MED LIST changes: -K-TA10TA PO; -NS 1,000 ML IV ONE; +POTA-164 PO
== END ==
LOC: M RAD 09:34
PROVIDERS: ATTEND Nurse Practitioner Family
DX: N18.31 Chronic kidney disease, stage 3a (principal); N28.1 Cyst of kidney, acquired

== ENCOUNTER → 2023-06-01 | Outpatient (CLI) | payer MEDICARE, OTHER | LOC: M RAD 11:00 | PROVIDERS: ATTEND Internal Medicine Cardiovascular Disease | DX: R06.00 Dyspnea, unspecified (principal) ==

== ENCOUNTER → 2025-07-11 | Outpatient (CLI) | payer MEDICARE, OTHER | LOC: M CARPUL 10:52 | PROVIDERS: ATTEND Nurse Practitioner Family | DX: Q21.10 Atrial septal defect, unspecified (principal); I08.1 Rheumatic disorders of both mitral and tricuspid valves ==